=== PATIENT | male | born 1980 | race Caucasian/White ===

== ENCOUNTER 2018-08-19 16:17 | Emergency (ER) | payer BC ==
[2018-08-19] MEDS: IBUPROFEN 800 MG TAB PO (17:03)
== END 2018-08-19 18:16 | disposition home or self-care (01) ==
LOC: E/R 16:17
DX: R07.9 Chest pain, unspecified (principal); F17.210 Nicotine dependence, cigarettes, uncomplicated
CPT/HCPCS: 71045; 93005; 99284-25